=== PATIENT | male | born 1935 | race Caucasian/White ===

== ENCOUNTER 2016-09-19 05:47 | Day surgery (SDC) | payer MEDICARE ==
[2016-09-19] MEDS ORDERED: Lactated Ringers 1,000 ML IV SCH (06:30)
[2016-09-19] MEDS ORDERED: Versed 2 MG/2 ML Injection IV ONE (08:00)
[2016-09-19] MEDS ORDERED: DIPRIVAN 200 MG/20 ML IV ONE (08:00)
--- NOTE | 2016-09-19 08:37 | OP ---
SURGERY DATE/TIME: 09/19/2016 0758 PREOPERATIVE DIAGNOSIS: Anemia. POSTOPERATIVE DIAGNOSIS: Gastritis possible polyp in the antrum. PROCEDURE: Esophagogastroduodenoscopy. SURGEON: Dr. Short. ANESTHESIA: Medications were given by the anesthesia department. BRIEF HISTORY: The patient is an 81 year old white male patient who presents now for complaints of anemia. 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 The patient is on aspirin and Plavix routinely and had not stopped taking his medication prior to the examination. The patient was appraised of the risks of the procedure including the risk of perforation, phlebitis, untoward reaction to medication, bleeding, and missed lesions. The patient verbalized his understanding and desired to have the procedure performed. DESCRIPTION OF PROCEDURE: The patient was given the medications by the anesthesia department. He had continuous pulse oximetry, ECG monitoring, intermittent blood pressure monitoring and tidal CO2 monitoring. He was given 40 mg of propofol and with close monitoring during the examination. With the Olympus gastroscope we were able to intubate the esophagus and advance the scope to the stomach which was insufflated with care. The scope was passed along the greater curvature of the stomach to the antrum which appeared with an area of villous-type appearance of that of a possible polyp. Pylorus was intubated and the duodenum was inspected. No ulcerations were noted. The patient was noted at this time to have decreasing O2 saturations. We felt it prudent at this time to discontinue the evaluation as he continued to deteriorate. The scope was then removed from the patient. He had to be bagged with the Ambu bag for a period of approximately five minutes before he woke up. We thought it was unsafe to continue with the evaluation at this time. The patient had careful inspection and he eventually woke up and appeared to be doing well supporting his breathing on his own. By the time I left the room he seemed to be recovering nicely. The patient was taken back to the recovery room in stable condition. We will discuss with the patient and his about the findings and the concern for proceeding further with the evaluation given his problems with his sedation with the fact that he was unable to tolerate being on medication for evaluation.
[2016-09-19 11:17] VITALS: BP 129/63; PULSE 70; O2SAT 90
== END 2016-09-19 11:15 | disposition home or self-care (01) ==
LOC: SDC 05:47
PROVIDERS: ATTEND Family Medicine
PROC: 0DJ08ZZ Inspection of Upper Intestinal Tract, Via Natural or Artificial Opening Endoscopic (ICD-10-PCS; principal; 2016-09-19)
DX: D64.9 Anemia, unspecified (principal); K29.70 Gastritis, unspecified, without bleeding; I50.9 Heart failure, unspecified; I10 Essential (primary) hypertension; Z79.899 Other long term (current) drug therapy; Z79.01 Long term (current) use of anticoagulants
CPT/HCPCS: 00740; 36415; 85014; 85018; 99100; J2250; J2704

== ENCOUNTER 2016-09-20 11:36 | Observation (INO) | payer MEDICARE ==
[2016-09-20] MEDS ORDERED: BABY ASPIRIN 81 MG CHEW PO ONE (11:43)
[2016-09-20] MEDS ORDERED: NITRO-BID 2% UD PACKETS TOP ONE (11:43)
--- NOTE | 2016-09-20 12:01 | ERPHSYRPT ---
- History of Present Illness Time Seen by Provider: 09/20/16 11:45 Historian: patient Exam Limitations: no limitations Patient Subjective Stated Complaint: pt states he began having chest pressure that started this morning. states he had an upper gi scope on 09/19/16 to check on an ulcer. pt states he quit breathing and they had to stop procedure. pt states he went home after procedure. Triage Nursing Assessment: pt pale, warm, dry. bilateral lower legs have 4 plus pitting edema. redness with bandage noted to left lower leg. lung sounds clear adn equal. pt breathing wnl. talking in full sentences. Physician History: Pt. desaturated with conscious sedation for EGD yesterday. Timing/Duration: today Activities at Onset: none Quality: sharpness Location: substernal Chest Pain Radiation: no radiation Severity of Pain-Max: moderate Severity of Pain-Current: moderate Modifying Factors: Improves With: other (post respiratoy distress with upper GI yesterday.) Associated Symptoms: denies symptoms Nitro Today/Relief: no nitro taken today Aspirin Treatment Today: 81 mg x 1 Allergies/Adverse Reactions: Sulfa (Sulfonamide Antibiotics) [Sulfa(Sulfonamide Antibiotics)] Allergy ( Verified 09/19/16 06:19) Home Medications: Furosemide 80 mg PO BID 08/31/12 [History] Glipizide 10 mg [Glucotrol 10 MG] 10 mg PO TID 08/31/12 [History] Insulin Glargine,Hum.rec.anlog [Lantus] 70 unit SQ HS 08/31/12 [History] Omeprazole 40 mg PO HS 08/31/12 [History] Potassium Chloride 10 Meq Tab* [Klor Con 10 MEQ] 10 meq PO TID 08/31/12 [ History] Pregabalin [Lyrica] 200 mg PO TID 08/31/12 [History] Apixaban [Eliquis] 2.5 mg PO BID 01/23/16 [History] Aspirin [Aspirin EC] 81 mg PO DAILY 01/23/16 [History] Ferrous Sulfate 325 mg [Feosol 325 mg] 325 mg PO BID 01/23/16 [History] Insulin Lispro [Humalog] 1 unit SQ UD 01/23/16 [History] Insulin Lispro [Humalog] 10 unit SQ ACHS 01/23/16 [History] Levothyroxine Sodium 150 Mcg [Synthroid 150 Mcg] 150 mcg PO DAILY 01/23/16 [History] Magnesium Oxide 400 mg [Mag-Ox 400] 200 mg PO BID 01/23/16 [History] Verapamil HCl 80 mg [Calan 80 mg] 80 mg PO BID 01/23/16 [History] Zolpidem Tartrate [Ambien] 10 mg PO HS 01/23/16 [History] Desloratadine [Clarinex] 5 mg PO HS 09/20/16 [History] Losartan Potassium 25 mg PO DAILY 09/20/16 [History] Nebivolol HCl [Bystolic] 20 mg PO BID 09/20/16 [History] Tamsulosin HCl 0.4 mg [Flomax 0.4 MG] 0.4 mg PO DAILY 09/20/16 [History] Hx Tetanus, Diphtheria Vaccination/Date Given: Yes (up to date) Hx Influenza Vaccination/Date Given: Yes Hx Pneumococcal Vaccination/Date Given: Yes Immunizations Up to Date: Yes - Review of Systems Constitutional: No Symptoms Eyes: No Symptoms Ears, Nose, & Throat: No Symptoms Respiratory: Dyspnea, Dyspnea on Exertion (STUBBS) Cardiac: Chest Pain, Edema Abdominal/Gastrointestinal: No Symptoms Musculoskeletal: No Symptoms Skin: No Symptoms Neurological: No Symptoms Psychological: No Symptoms Endocrine: No Symptoms Hematologic/Lymphatic: No Symptoms - Past Medical History Pertinent Past Medical History: Yes Neurological History: No Pertinent History ENT History: No Pertinent History Cardiac History: Arrhythmia, Congestive Heart Failure, Coronary Artery Disease, Hypertension, Myocardial Infarction (CT) Respiratory History: CHF, Pneumonia, Sleep Apnea Endocrine Medical History: Diabetes Type II, Hypothyroidism Musculoskeletal History: Arthritis, Rheumatoid Arthritis GI Medical History: Diverticulitis History: Renal Disease Psycho-Social History: No Pertinent History Male Reproductive Disorders: Prostate Problems, Testicular Cancer Other Medical History: states had osteomyelitis yrs ago. Hx of Afib. - Past Surgical History Past Surgical History: Yes Neuro Surgical History: No Pertinent History Cardiac: Cardiac Stent, Pacemaker Respiratory: No Pertinent History Gastrointestinal: No Pertinent History Genitourinary: No Pertinent History Musculoskeletal: Orthopedic Surgery, Other Male Surgical History: Testicular Surgery Other Surgical History: states had low abd open to do surgery to testicular area. colonoscopy. bilateral feet surgeries. lymph node dissection. 2 back surgeries - Social History Smoking Status: Former smoker Exposure to second hand smoke: No Drug Use: none Patient Lives Alone: No - Nursing Vital Signs Temperature: 97.9 F Temperature Source: Oral Pulse Rate: 70 Respiratory Rate: 18 Blood Pressure: 120/73 Pain Intensity: 2 - Physical Exam General Appearance: moderate distress Eye Exam: PERRL/EOMI, eyes nml inspection Ears, Nose, Throat Exam: normal ENT inspection, pharynx normal Neck Exam: normal inspection, non-tender, supple, full range of motion Respiratory Exam: normal breath sounds, lungs clear Cardiovascular Exam: regular rate/rhythm, normal peripheral pulses Gastrointestinal/Abdomen Exam: soft, normal bowel sounds Extremity Exam: normal range of motion, pelvis stable, pedal edema (4+ pretibial pitting BLE) Neurologic Exam: alert, oriented x 3, cooperative, normal mood/affect Skin Exam: warm, dry SpO2 Interpretation: normal SpO2: 89 Oxygen Delivery: Room Air - Course Nursing assessment & vital signs reviewed: Yes EKG Interpreted by Me: RATE (70..RV paced), Other (No determination of ST/T abn d/t pacemaker) - Radiology Exams Chest X-ray Interpretation: Discussed w/ radiologist (minimally worsened left basilar inf/atelectasis/effusion. Borderline cardiomegaly.) Ordered Tests: Active Orders 24 hr Category Date Time Status Family Nurse Practitioner STAT Care 09/20/16 11:43 Active EKG-ER Only STAT Care 09/20/16 11:43 Active Oxygen-ED Only NASAL CANNULA 2 lpm Care 09/20/16 11:43 Active CHEST 1 VIEW (PORTABLE) Stat Exams 09/20/16 11:43 Completed CBC W DIFF Stat Lab 09/20/16 11:50 Completed CMP Stat Lab 09/20/16 11:50 Received Manual Differential NC Stat Lab 09/20/16 11:50 Completed NT PRO BNP Stat Lab 09/20/16 11:50 Received PROTIME WITH INR Stat Lab 09/20/16 11:50 Received TROPONIN Q3H Lab 09/20/16 11:50 Received TROPONIN Q3H Lab 09/20/16 14:45 Ordered TROPONIN Q3H Lab 09/20/16 17:45 Ordered TROPONIN Q3H Lab 09/20/16 20:45 Ordered TROPONIN Q3H Lab 09/20/16 23:45 Ordered Medication Summary Discontinued Medications Generic Name Dose Route Start Last Admin Trade Name Konstantin PRN Reason Stop Dose Admin Aspirin 324 mg 09/20/16 11:43 09/20/16 12:10 Baby Aspirin 81 Mg Chew PO 09/20/16 11:44 324 mg STAT ONE Administration Aspirin Confirm 09/20/16 12:08 Baby Aspirin 81 Mg Chew Administered 09/20/16 12:09 Dose 324 mg .ROUTE .STK-MED ONE Nitroglycerin 1 gm 09/20/16 11:43 09/20/16 12:10 Nitro-Bid 2% Ud Packets TOP 09/20/16 11:44 1 gm STAT ONE Administration Nitroglycerin Confirm 09/20/16 12:08 Nitro-Bid 2% Ud Packets Administered 09/20/16 12:09 Dose 1 gm .ROUTE .STK-MED ONE Lab/Rad Data: Laboratory Result Diagrams 09/20/16 11:50 Laboratory Results 09/20/16 Range/Units 11:50 WBC 5.9 (4.0-10.5) K/mm3 RBC 4.23 (4.1-5.6) M/mm3 Hgb 9.8 L (12.5-18.0) gm/dl Hct 34.1 L (42-50) % MCV 80.6 (78-100) fl MCH 23.1 L (26-32) pg MCHC 28.7 L (32-36) g/dl RDW 22.6 H (11.5-14.0) % Plt Count 174 (150-450) K/mm3 MPV 9.9 H (6-9.5) fl - Progress Progress: improved Air Movement: good Blood Culture(s) Obtained: Yes Antibiotics given: Yes, No Discussed with : Edgar Will see patient in: hospital (observation) Counseled pt/family regarding: lab results, diagnosis, rad results - Departure Time of Disposition: 12:55 Departure Disposition: Observation Clinical Impression: Chest pain Qualifiers: Chest pain type: precordial chest pain Qualified Code(s): R07.2 - Precordial pain CHF exacerbation Qualifiers: Congestive heart failure type: unspecified congestive heart failure type Qualified Code(s): I50.9 - Heart failure, unspecified Condition: Stable Critical Care Time: Yes Critical Care Time(excluding separately billable procedures): 30-74 minutes Referrals: FELIPE SANDERS [Primary Care Provider] - Instructions: Heart Failure
[2016-09-20 12:06] LABS: Mean Cell Volume 80.6 fl (78-100); Mean Platelet Volume 9.9 fl (6-9.5); Platelet Count 174 K/mm3 (150-450); Red Blood Count 4.23 M/mm3 (4.1-5.6); Red Cell Distribution Width 22.6 % (11.5-14.0); White Blood Count 5.9 K/mm3 (4.0-10.5)
[2016-09-20 12:07] LABS: Mean Corpuscular Hemoglobin 23.1 pg (26-32)
[2016-09-20] MEDS ORDERED: BABY ASPIRIN 81 MG CHEW ONE (12:08)
[2016-09-20] MEDS ORDERED: NITRO-BID 2% UD PACKETS ONE (12:08)
--- NOTE | 2016-09-20 12:14 | XRAY ---
Indication: Chest pain and short of breath. Comparison: January 24, 2016 Portable apical lordotic chest demonstrates minimally worsening left base infiltrate/atelectasis/effusion. Again a few scattered calcific granulomas. The heart is borderline enlarged again with left-sided dual-lead pacemaker. Bony thorax intact again with mild degenerative changes and mid thoracic kyphoplasty. Impression: Minimally worsening left base infiltrate/atelectasis/effusion. Borderline cardiomegaly.
[2016-09-20 12:45] LABS: INR 1.57 (0.8-3.0); PROTIME 17.4 SECONDS (8.83-12.87)
[2016-09-20 12:46] LABS: ALBUMIN 3.2 g/dL (3.4-5.0); ANION GAP 11.7 MEQ/L (5-15); BILIRUBIN,TOTAL 0.5 mg/dL (0.2-1.0); Carbon Dioxide 33.8 mEq/L (21-32); Potassium 4.2 mEq/L (3.5-5.1); Total Protein 7.1 gm/dL (6.4-8.2)
[2016-09-20] MEDS ORDERED: LASIX IV ONE (12:58)
[2016-09-20] MEDS ORDERED: MILK OF MAGNESIA 30 ML PO PRN (13:00)
[2016-09-20] MEDS ORDERED: MORPHINE SULFATE 2 MG INJ IV PRN (13:00)
[2016-09-20] MEDS ORDERED: TYLENOL 325 MG PO PRN (13:00)
[2016-09-20] MEDS ORDERED: MAALOX ES 30 ML UNIT DOSE PO PRN (13:00)
[2016-09-20] MEDS ORDERED: Zofran 4 MG/2 ML VIAL IV PRN (13:00)
[2016-09-20] MEDS ORDERED: NovoLIN R SQ PRN (13:00)
[2016-09-20] MEDS ORDERED: Senokot-S Tablet PO PRN (13:00)
[2016-09-20 13:01] LABS: BAND 2 % (0.0-2.0); Basophil 1 % (0.0-1.0); Eosinophil 1 % (0.00-3.0); Total Cells Counted 100
[2016-09-20 13:03] LABS: ANISOCYTOSIS 1+; Polychromasia 1+
[2016-09-20 13:04] LABS: Platelet Estimate NORMAL (NORMAL)
[2016-09-20] MEDS: NITRO-BID 2% UD PACKETS TOP SCH ×2 (14:39→21:41)
[2016-09-20] MEDS ORDERED: Zaroxolyn 2.5 MG PO PRN (15:27)
[2016-09-20] MEDS ORDERED: NON-FORMULARY ITEM (Insulin Lispro 1 UNIT) SQ SCH (15:30)
[2016-09-20] MEDS ORDERED: Sodium Chloride 0.9% 10 ML FLUSH Syringe IV PRN (16:07)
[2016-09-20] MEDS: NovoLOG Insulin SQ SCH (16:25)
[2016-09-20] MEDS: CALAN 80 MG PO SCH (21:39)
[2016-09-20] MEDS: CLARITIN 10 MG PO SCH (21:39)
[2016-09-20] MEDS: Bystolic 5 MG PO SCH (21:39)
[2016-09-20] MEDS: Lantus Insulin SQ SCH (21:40)
[2016-09-20] MEDS: FEOSOL 325 MG PO SCH (21:40)
[2016-09-20] MEDS: Klor Con 10 MEQ PO SCH (21:40)
[2016-09-20] MEDS: ELIQUIS PO SCH (21:40)
[2016-09-20] MEDS: Protonix 40MG Tablet PO SCH (21:41)
[2016-09-20] MEDS: LYRICA 100MG PO SCH (21:41)
[2016-09-20] MEDS: Sodium Chloride 0.9% 10 ML FLUSH Syringe IV SCH (21:41)
[2016-09-20] MEDS ORDERED: NON-FORMULARY ITEM (Apixaban [Eliquis] 2.5 MG) PO SCH (22:00)
[2016-09-20] MEDS ORDERED: PREGABALIN 200 MG PO SCH (22:00)
[2016-09-20] MEDS ORDERED: DESLORATADINE 5 MG PO SCH (22:00)
[2016-09-20] MEDS ORDERED: NON-FORMULARY ITEM (Potassium Chloride [K-Dur] 20 MEQ) PO SCH (22:00)
[2016-09-20] MEDS ORDERED: NON-FORMULARY ITEM (Nebivolol Hcl [Bystolic] 20 MG) PO SCH (22:00)
[2016-09-20] MEDS ORDERED: NON-FORMULARY ITEM (Omeprazole [Omeprazole] 40 MG) PO SCH (22:00)
[2016-09-20] MEDS: Ambien 10 MG PO SCH (23:14)
[2016-09-21] MEDS: NovoLOG Insulin SQ PRN ×2 (01:59→21:59)
[2016-09-21] MEDS: Sodium Chloride 0.9% 10 ML FLUSH Syringe IV SCH ×3 (05:35→21:58)
[2016-09-21] MEDS: NITRO-BID 2% UD PACKETS TOP SCH ×3 (05:38→21:50)
[2016-09-21] MEDS: NovoLOG Insulin SQ SCH ×3 (07:19→17:20)
[2016-09-21] MEDS: Klor Con 10 MEQ PO SCH ×2 (07:52→21:54)
[2016-09-21] MEDS: ELIQUIS PO SCH ×2 (09:44→21:55)
[2016-09-21] MEDS: Bystolic 5 MG PO SCH ×2 (09:47→21:56)
[2016-09-21] MEDS: Flomax 0.4 MG PO SCH (09:47)
[2016-09-21] MEDS: SYNTHROID 150 MCG PO SCH (09:48)
[2016-09-21] MEDS: ECOTRIN 81 MG PO SCH (09:48)
[2016-09-21] MEDS: FEOSOL 325 MG PO SCH ×2 (09:48→21:53)
[2016-09-21] MEDS: CALAN 80 MG PO SCH ×2 (09:48→21:54)
[2016-09-21] MEDS: Cozaar 50 MG PO SCH (09:48)
[2016-09-21] MEDS: LYRICA 100MG PO SCH ×3 (09:49→21:53)
[2016-09-21] MEDS ORDERED: NON-FORMULARY ITEM (Losartan Potassium [Losartan Potassium] 25 MG) PO SCH (10:00)
[2016-09-21] MEDS: Protonix 40MG Tablet PO SCH (21:53)
[2016-09-21] MEDS: CLARITIN 10 MG PO SCH (21:56)
[2016-09-21] MEDS: Lantus Insulin SQ SCH (21:57)
[2016-09-21] MEDS: Ambien 10 MG PO SCH (22:53)
[2016-09-22] MEDS: NITRO-BID 2% UD PACKETS TOP SCH (05:29)
[2016-09-22] MEDS: Sodium Chloride 0.9% 10 ML FLUSH Syringe IV SCH (05:30)
[2016-09-22] MEDS: NovoLOG Insulin SQ SCH ×2 (07:35→12:37)
[2016-09-22 07:43] VITALS: BP 153/73
--- NOTE | 2016-09-22 07:43 | ECHO ---
Transthoracic echocardiographic examination and color Doppler was done on 09/21/2016. INDICATION: Congestive heart failure, shortness of breath, chest pain, hypertension, and coronary artery disease. IMPRESSION: 1) GLOBAL LEFT VENTRICULAR HYPOKINESIA WITH SEPTAL DYSKINESIA. LEFT VENTRICULAR EJECTION FRACTION AROUND 25%. 2) MILDLY DILATED LEFT VENTRICLE. 3) LEFT VENTRICULAR HYPERTROPHY. 4) MILD MITRAL REGURGITATION. 5) TRACE TRICUSPID REGURGITATION. RIGHT VENTRICULAR SYSTOLIC PRESSURE OF 26 MM OF MERCURY. The left ventricle is visualized and demonstrated a global left ventricular hypokinesia with septal dyskinesia. Estimated global left ventricular ejection fraction 25%. There is mild left ventricular hypertrophy. The left ventricle is also mildly dilated. The mitral valve is seen and this has a low flow characteristic suggestive of low cardiac output. There is mild mitral regurgitation. The left atrium is still normal. The aortic valve appears to open adequately. There is trace aortic regurgitation. Right side chambers are normal. There is trace tricuspid regurgitation. Right ventricular systolic pressure of 26 mm of Mercury. The tissue Doppler study of the lateral mitral annulus is suggestive of left ventricular diastolic dysfunction.
[2016-09-22] MEDS: FEOSOL 325 MG PO SCH (10:44)
[2016-09-22] MEDS: Bystolic 5 MG PO SCH (10:44)
[2016-09-22] MEDS: SYNTHROID 150 MCG PO SCH (10:45)
[2016-09-22] MEDS: Klor Con 10 MEQ PO SCH (10:45)
[2016-09-22] MEDS: LYRICA 100MG PO SCH (10:45)
[2016-09-22] MEDS: Cozaar 50 MG PO SCH (10:46)
[2016-09-22] MEDS: ELIQUIS PO SCH (10:46)
[2016-09-22] MEDS: Flomax 0.4 MG PO SCH (10:47)
[2016-09-22] MEDS: ECOTRIN 81 MG PO SCH (10:47)
[2016-09-22] MEDS: CALAN 80 MG PO SCH (10:47)
--- NOTE | 2016-09-22 10:59 | XRAY ---
Indication: Low hemoglobin. Incomplete EGD. Single contrast upper GI performed. Comparison: None Study limited due to patient's immobility. Patient ingested barium through a straw without miss swallow or aspiration. Esophagus is normal in course and caliber without focal stricture, obstruction, or filling defect. No hiatal hernia. Barium freely emptied into the stomach. Contours of the lesser and greater curvature are smooth. No acute ulcerations or filling defect. Normal appearing duodenal bulb and duodenal with small diverticulum in the distal descending duodenum. Single overhead radiograph demonstrates normal antegrade movement of the barium. Impression: Duodenal diverticulum. Remaining upper GI exam is negative. Approximately 1.3 minute fluoroscopy used.
--- NOTE | 2016-09-22 11:14 | PCM.DCORD ---
- Discharge Discharge Date: 09/22/16 Disposition: HOME HEALTH SERVICE Condition: Good Medications: Home Medications Furosemide 80 mg PO DAILY 08/31/12 [Confirmed 09/20/16] Glipizide 10 mg [Glucotrol 10 MG] 10 mg PO TID 08/31/12 [Confirmed ] Insulin Glargine,Hum.rec.anlog [Lantus] 70 unit SQ HS 08/31/12 [Confirmed ] Omeprazole 40 mg PO HS 08/31/12 [Confirmed 09/20/16] Potassium Chloride 10 Meq Tab* [Klor Con 10 MEQ] 30 meq PO BREAKFAST [Confirmed 09/20/16] Pregabalin [Lyrica] 200 mg PO TID 08/31/12 [Confirmed 09/20/16] Apixaban [Eliquis] 2.5 mg PO BID 01/23/16 [Confirmed 09/20/16] Aspirin [Aspirin EC] 81 mg PO DAILY 01/23/16 [Confirmed 09/20/16] Ferrous Sulfate 325 mg [Feosol 325 mg] 325 mg PO BID 01/23/16 [Confirmed 09/20/16] Insulin Lispro [Humalog] 1 unit SQ UD 01/23/16 [Confirmed 09/20/16] Levothyroxine Sodium 150 Mcg [Synthroid 150 Mcg] 150 mcg PO DAILY 01/23/16 [Confirmed 09/20/16] Verapamil HCl 80 mg [Calan 80 mg] 80 mg PO BID 01/23/16 [Confirmed ] Zolpidem Tartrate [Ambien] 10 mg PO HS 01/23/16 [Confirmed 09/20/16] Clopidogrel Bisulfate 75 mg [PLAVIX 75 MG Tablet] 75 mg PO UD 09/20/16 [ Confirmed 09/20/16] Desloratadine [Clarinex] 5 mg PO HS 09/20/16 [Confirmed 09/20/16] Losartan Potassium 25 mg PO DAILY 09/20/16 [Confirmed 09/20/16] Metolazone 2.5 mg [Zaroxolyn 2.5 MG] 2.5 mg PO WEEKLY PRN 09/20/16 [ Confirmed 09/20/16] Nebivolol HCl [Bystolic] 20 mg PO BID 09/20/16 [Confirmed 09/20/16] Potassium Chloride [K-Dur] 20 meq PO HS 09/20/16 [Confirmed 09/20/16] Tamsulosin HCl 0.4 mg [Flomax 0.4 MG] 0.4 mg PO DAILY 09/20/16 [Confirmed 09/20/16] Active Inpatient Medications Acetaminophen (Tylenol 325 Mg) 650 mg PO Q4H PRN PRN PRN Reason: PAIN AND/OR FEVER Stop: 10/20/16 12:59 Al Hydrox/Mg Hydrox/Simethicone (Maalox Es 30 Ml Unit Dose) 30 ml PO Q4H PRN PRN PRN Reason: INDIGESTION Stop: 10/20/16 12:59 Apixaban (Eliquis) 2.5 mg PO BID [facility] Stop: 10/20/16 21:59 Last Admin: 09/22/16 10:46 Dose: 2.5 mg Aspirin (Ecotrin 81 Mg) 81 mg PO DAILY [facility] Stop: 10/21/16 09:59 Last Admin: 09/22/16 10:47 Dose: 81 mg Clopidogrel Bisulfate (Plavix 75 Mg Tablet) 75 mg PO [id number]@1000 [facility] Stop: 10/25/16 09:59 Ferrous Sulfate (Feosol 325 Mg) 325 mg PO BID [facility] Stop: 10/20/16 21:59 Last Admin: 09/22/16 10:44 Dose: 325 mg Insulin Aspart (Novolog Insulin) 10 unit SQ AC [facility] Stop: 10/20/16 16:29 Last Admin: 09/22/16 07:35 Dose: Not Given Insulin Aspart (Novolog Insulin) 0 unit SQ UD PRN Stop: 10/20/16 15:46 Last Admin: 09/21/16 21:59 Dose: 7 unit Insulin Glargine (Lantus Insulin) 70 unit SQ HS [facility] Stop: 10/20/16 21:59 Last Admin: 09/21/16 21:57 Dose: 70 unit Levothyroxine Sodium (Synthroid 150 Mcg) 150 mcg PO DAILY [facility] Stop: 10/21/16 09:59 Last Admin: 09/22/16 10:45 Dose: 150 mcg Loratadine (Claritin 10 Mg) 10 mg PO HS [facility] Stop: 10/20/16 21:59 Last Admin: 09/21/16 21:56 Dose: 10 mg Losartan Potassium (Cozaar 50 Mg) 25 mg PO DAILY [facility] Stop: 10/21/16 09:59 Last Admin: 09/22/16 10:46 Dose: 25 mg Magnesium Hydroxide (Milk Of Magnesia 30 Ml) 30 - 60 ml PO QDP PRN PRN Reason: CONSTIPATION Stop: 10/20/16 12:59 Metolazone (Zaroxolyn 2.5 Mg) 2.5 mg PO WEEKLY PRN PRN Reason: ELEVATED BLOOD PRESSURE Stop: 10/20/16 15:26 Last Admin: 09/20/16 21:41 Dose: 2.5 mg Morphine Sulfate (Morphine Sulfate 2 Mg Inj) 2 mg IV .Q15MIN PRN PRN PRN Reason: CHEST PAIN Stop: 09/25/16 12:59 Nebivolol (Bystolic 5 Mg) 20 mg PO BID [facility] Stop: 10/20/16 21:59 Last Admin: 09/22/16 10:44 Dose: 20 mg Nitroglycerin (Nitro-Bid 2% Ud Packets) 1 gm TOP Q8HT [facility] Stop: 10/20/16 13:59 Last Admin: 09/22/16 05:29 Dose: 1 gm Ondansetron HCl (Zofran 4 Mg/2 Ml Vial) 4 mg IV Q4H PRN PRN PRN Reason: NAUSEA/VOMITING Stop: 10/20/16 12:59 Pantoprazole Sodium (Protonix 40mg Tablet) 40 mg PO HS [facility] Stop: 10/20/16 21:59 Last Admin: 09/21/16 21:53 Dose: 40 mg Potassium Chloride (Klor Con 10 Meq) 30 meq PO BREAKFAST [facility] Stop: 10/21/16 07:59 Last Admin: 09/22/16 10:45 Dose: 30 meq Potassium Chloride (Klor Con 10 Meq) 20 meq PO HS [facility] Stop: 10/20/16 21:59 Last Admin: 09/21/16 21:54 Dose: 20 meq Pregabalin (Lyrica 100mg) 200 mg PO TID [facility] Stop: 10/20/16 21:59 Last Admin: 09/22/16 10:45 Dose: 200 mg Senna/Docusate Sodium (Senokot-S Tablet) 2 udtab PO BID PRN PRN PRN Reason: CONSTIPATION Stop: 10/20/16 12:59 Sodium Chloride (Sodium Chloride 0.9% 10 Ml Flush Syringe) 10 ml IV Q8HT [facility] Stop: 10/20/16 21:59 Last Admin: 09/22/16 05:30 Dose: 10 ml Sodium Chloride (Sodium Chloride 0.9% 10 Ml Flush Syringe) 10 ml IV PRN PRN PRN Reason: FLUSH Stop: 10/20/16 16:06 Tamsulosin HCl (Flomax 0.4 Mg) 0.4 mg PO DAILY [facility] Stop: 10/21/16 09:59 Last Admin: 09/22/16 10:47 Dose: 0.4 mg Verapamil HCl (Calan 80 Mg) 80 mg PO BID [facility] Stop: 10/20/16 21:59 Last Admin: 09/22/16 10:47 Dose: 80 mg Zolpidem Tartrate (Ambien 10 Mg) 10 mg PO HS [facility] Stop: 10/20/16 21:59 Last Admin: 09/21/16 22:53 Dose: 10 mg Instructions: Heart Failure Additional Instructions: [facility] TO FOLLOW YOU AFTER DISCHARGE YOU MAY CONTACT THEM AT [phone] IF NEEDED. Follow up with: FELIPE SANDERS [Primary Care Provider] - Forms: Patient Portal Information
[2016-09-22 12:11] VITALS: PULSE 72; O2SAT 95
[2016-09-25] MEDS ORDERED: PLAVIX 75 MG Tablet PO SCH (10:00)
--- NOTE | 2016-09-26 10:38 | DS ---
DISCHARGE DIAGNOSES: 1) ANEMIA. 2) CHRONIC OBSTRUCTIVE PULMONARY DISEASE. 3) CORONARY ARTERY DISEASE. 4) CONGESTIVE HEART FAILURE. 5) DIABETES MELLITUS TYPE 2. 6) RENAL INSUFFICIENCY. 7) CHRONIC LYMPH EDEMA. HISTORY: The patient is an 81 year-old white male patient who was brought into the hospital for problems with anemia and shortness of breath. 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 However the lab had discussion and disagreement with this as his hemoglobin was 8.8 and not less than 8 and it is hospital policy not to transfuse unless it was less than 8. The fertilizer mixer admitted him after this and did not insist upon blood transfusion. However the patient was felt the need to have endoscopic evaluation to look for a source of blood loss. The patient was admitted to the hospital for outpatient endoscopy. HOSPITAL COURSE: The patient went to endoscopy. There appeared to be an area in the lower stomach that appeared to be abnormal. However the patient did not tolerate propofol. He desaturated and stopped breathing. The procedure had to be halted and the patient had to be resuscitated by bagging for approximately five minutes until the medicine wore off after which the patient seemed to do well. He was monitored for several hours and allowed to be discharged home. The patient presented himself back to the emergency room later with more problems with weakness and he was therefore admitted to the hospital for observation. With monitoring the patient's blood count actually improved with no transfusion getting to the low 9 range. The patient showed what appeared to be an abnormality on the EGD briefly and evaluated with upper GI examination which did not see any significant abnormalities. The patient was actually doing quite well at this point and felt to be ready for discharge back home. He was discharged back home on his usual home medications, instructed to follow up in the office again in one week.
== END 2016-09-22 14:15 | disposition home health service (06) ==
LOC: ED 11:36 → MED SURG 13:25
PROVIDERS: ADMIT Family Medicine; ATTEND Family Medicine
DX: D64.9 Anemia, unspecified (principal); J44.9 Chronic obstructive pulmonary disease, unspecified; I25.10 Atherosclerotic heart disease of native coronary artery without angina pectoris; I50.9 Heart failure, unspecified; E11.9 Type 2 diabetes mellitus without complications; N28.9 Disorder of kidney and ureter, unspecified; I89.0 Lymphedema, not elsewhere classified
CPT/HCPCS: 36415; 71010; 74246; 80053; 82962; 83880; 84484; 85025; 85610; 87040; 93005; 93041; 93268; 93306; 94660; 94760; 99284; G0378; J1940

== ENCOUNTER 2017-07-14 22:38 | Emergency (ER) | payer MEDICARE, SELFPAY ==
[2017-07-14] MEDS ORDERED: SUBLIMAZE 100 MCG/2 ML IV ONE (23:02)
--- NOTE | 2017-07-14 23:11 | ERPHSYRPT ---
- History of Present Illness Time Seen by Provider: 07/14/17 22:47 Source: patient, EMS (noted low BP milo IVF bolus 400ml given) Physician History: CC: right arm swelling Hx: 81 y/o patient of Dr Short has right foot sore being cared for by [facility]. He noted he awoke with right arm swelling and pain about a week ago and it has worsened. [facility] sent him here to rule out DVT in right arm. He reports very remote hx of gout. No fall or injury, just awoke with arm pain and swelling. No fever or chills. He has some tingling in the right hand. Pain in right arm limits ROM. Severity of Pain-Max: severe Severity of Pain-Current: severe Extremities Pain Location: arm: right Allergies/Adverse Reactions: Sulfa (Sulfonamide Antibiotics) [Sulfa(Sulfonamide Antibiotics)] Allergy ( Verified 09/19/16 06:19) Home Medications: Furosemide 80 mg PO DAILY 08/31/12 [History] Glipizide 10 mg [Glucotrol 10 MG] 10 mg PO TID 08/31/12 [History] Insulin Glargine,Hum.rec.anlog [Lantus] 70 unit SQ HS 08/31/12 [History] Omeprazole 40 mg PO HS 08/31/12 [History] Potassium Chloride 10 Meq Tab* [Klor Con 10 MEQ] 30 meq PO BREAKFAST [History] Pregabalin [Lyrica] 200 mg PO TID 08/31/12 [History] Apixaban [Eliquis] 2.5 mg PO BID 01/23/16 [History] Aspirin [Aspirin EC] 81 mg PO DAILY 01/23/16 [History] Ferrous Sulfate 325 mg [Feosol 325 mg] 325 mg PO BID 01/23/16 [History] Insulin Lispro [Humalog] 1 unit SQ UD 01/23/16 [History] Levothyroxine Sodium 150 Mcg [Synthroid 150 Mcg] 150 mcg PO DAILY 01/23/16 [History] Verapamil HCl 80 mg [Calan 80 mg] 80 mg PO BID 01/23/16 [History] Zolpidem Tartrate [Ambien] 10 mg PO HS 01/23/16 [History] Clopidogrel Bisulfate 75 mg [PLAVIX 75 MG Tablet] 75 mg PO UD 09/20/16 [ History] Desloratadine [Clarinex] 5 mg PO HS 09/20/16 [History] Losartan Potassium 25 mg PO DAILY 09/20/16 [History] Metolazone 2.5 mg [Zaroxolyn 2.5 MG] 2.5 mg PO WEEKLY PRN 09/20/16 [History] Nebivolol HCl [Bystolic] 20 mg PO BID 09/20/16 [History] Potassium Chloride [K-Dur] 20 meq PO HS 09/20/16 [History] Tamsulosin HCl 0.4 mg [Flomax 0.4 MG] 0.4 mg PO DAILY 09/20/16 [History] Hx Tetanus, Diphtheria Vaccination/Date Given: Yes (up to date) Hx Influenza Vaccination/Date Given: Yes Hx Pneumococcal Vaccination/Date Given: Yes - Review of Systems Constitutional: No Fever, No Chills Eyes: No Symptoms Ears, Nose, & Throat: No Symptoms Respiratory: No Cough, No Dyspnea Cardiac: No Chest Pain Abdominal/Gastrointestinal: No Abdominal Pain, No Nausea, No Vomiting Musculoskeletal: Joint Pain (right elbow), No Back Pain, No Neck Pain, No Fall, No Injury Skin: No Rash Neurological: Focal Weakness (right hand), Parasthesia (right hand), No Headache All Other Systems: Reviewed and Negative - Past Medical History Pertinent Past Medical History: Yes Neurological History: No Pertinent History ENT History: No Pertinent History Cardiac History: Arrhythmia, Congestive Heart Failure, Coronary Artery Disease, Hypertension, Myocardial Infarction (VT) Respiratory History: CHF, Pneumonia, Sleep Apnea Endocrine Medical History: Diabetes Type II, Hypothyroidism Musculoskeletal History: Arthritis, Rheumatoid Arthritis GI Medical History: Diverticulitis History: Renal Disease Psycho-Social History: No Pertinent History Male Reproductive Disorders: Prostate Problems, Testicular Cancer Other Medical History: states had osteomyelitis yrs ago. Hx of Afib. - Past Surgical History Past Surgical History: Yes Neuro Surgical History: No Pertinent History Cardiac: Cardiac Stent, Pacemaker Respiratory: No Pertinent History Gastrointestinal: No Pertinent History Genitourinary: No Pertinent History Musculoskeletal: Orthopedic Surgery, Other Male Surgical History: Testicular Surgery Other Surgical History: states had low abd open to do surgery to testicular area. colonoscopy. bilateral feet surgeries. lymph node dissection. 2 back surgeries - Social History Smoking Status: Former smoker Exposure to second hand smoke: No Drug Use: none Patient Lives Alone: No - Nursing Vital Signs Nursing Vital Signs: Initial Vital Signs Temperature 98.4 F 07/14/17 22:47 Pulse Rate 76 07/14/17 22:47 Respiratory Rate 18 07/14/17 22:47 Blood Pressure 148/64 07/14/17 22:47 O2 Sat by Pulse Oximetry 96 07/14/17 22:47 Pain Scale Pain Intensity 10 - Physical Exam General Appearance: alert Eyes, Ears, Nose, Throat Exam: normal ENT inspection, moist mucous membranes Neck Exam: normal inspection, supple Cardiovascular/Respiratory Exam: normal breath sounds, regular rate/rhythm Abdominal Exam: non-tender, soft Shoulder Exam: normal inspection, non-tender Elbow/Forearm Exam: swelling (right elbow is swollen, not red, not warm) Mental Status Exam: alert, oriented x 3, cooperative Skin Exam: warm, dry SpO2 Interpretation: normal SpO2: 96 Oxygen Delivery: Room Air Comments: right elbow swollen and tender. Not red or warm. He has limited ROM right arm and holds it still. He has a tremor. Right hand is held in partial flexion with limited ROM hand. He has loss of light touch sensation in right index finger at median area and 5th finger ulnar area. - Course Nursing assessment & vital signs reviewed: Yes EKG Interpreted by Me: RATE (76 pacemaker rhythm) - Radiology Exams cxr X-ray Interpretation: Reviewed by me (CM, pacemaker, mild congestion) right elbow X-ray Interpretation: Reviewed by me (severe degenerative change) - Radiology Ultrasound Exam right upper extremity Ultrasound: Other (per tech: large elbow effusion with fluid, no DVT in right arm, good distal arterial flow both radial and ulnar arteries) Ordered Tests: Active Orders 24 hr Category Date Time Status Clean Catch Urine Specimen STAT Care 07/14/17 23:02 Active EKG-ER Only STAT Care 07/14/17 23:02 Active IV Insertion STAT Care 07/14/17 23:02 Active CHEST 1 VIEW (PORTABLE) Stat Exams 07/14/17 23:03 Taken ELBOW (2 VIEW) Stat Exams 07/14/17 23:01 Taken VENOUS UNILAT/LIMITED EXTREMIT [US] Stat Exams 07/14/17 23:02 Ordered BLOOD CULTURE Stat Lab 07/15/17 00:18 Ordered CBC W DIFF Stat Lab 07/14/17 23:30 Completed CK-Creatinine Phosphokinase Stat Lab 07/14/17 23:30 Completed CMP Stat Lab 07/14/17 23:30 Completed CULTURE,URINE Stat Lab 07/14/17 23:30 Received Erythrocyte Sedimentation Rate Stat Lab 07/14/17 23:30 Completed Lactic Acid Stat Lab 07/14/17 23:35 Completed PROTIME WITH INR Stat Lab 07/14/17 23:30 Completed PTT Stat Lab 07/14/17 23:30 Completed UA W/ MICROSCOPIC Stat Lab 07/14/17 23:30 Completed Uric Acid Stat Lab 07/14/17 23:30 Completed Medication Summary Generic Name Dose Route Start Last Admin Trade Name Freq PRN Reason Stop Dose Admin Sodium Chloride 1,000 mls @ 100 mls/hr 07/14/17 23:15 07/14/17 23:41 Sodium Chloride 0.9% 1000 Ml IV 08/13/17 23:14 100 mls/hr .Q10H SHALONDA Administration Discontinued Medications Generic Name Dose Route Start Last Admin Trade Name Freq PRN Reason Stop Dose Admin Fentanyl Citrate 50 mcg 07/14/17 23:02 07/14/17 23:41 Sublimaze 100 Mcg/2 Ml IV 07/14/17 23:03 50 mcg STAT ONE Administration Fentanyl Citrate Confirm 07/14/17 23:25 Sublimaze 100 Mcg/2 Ml Administered 07/14/17 23:26 Dose 100 mcg .ROUTE .STK-MED ONE Fentanyl Citrate 50 mcg 07/15/17 00:41 07/15/17 00:50 Sublimaze 100 Mcg/2 Ml IV 07/15/17 00:42 50 mcg STAT ONE Administration Fentanyl Citrate Confirm 07/15/17 00:47 Sublimaze 100 Mcg/2 Ml Administered 07/15/17 00:48 Dose 100 mcg .ROUTE .STK-MED ONE Lab/Rad Data: Laboratory Result Diagrams 07/14/17 23:30 07/14/17 23:30 Laboratory Results 07/14/17 07/14/17 07/14/17 Range/Units 23:35 23:30 23:30 WBC (4.0-10.5) K/mm3 RBC (4.1-5.6) M/mm3 Hgb (12.5-18.0) gm/dl Hct (42-50) % MCV (78-100) fl MCH (26-32) pg MCHC (32-36) g/dl RDW (11.5-14.0) % Plt Count (150-450) K/mm3 MPV (6-9.5) fl Gran % (36.0-66.0) % Lymphocytes % (24.0-44.0) % Monocytes % (0.0-12.0) % Eosinophils % (0.00-5.0) % Basophils % (0.0-0.4) % Basophils # (0-0.4) ESR (0-15) mm/hr INR 1.42 (0.8-3.0) APTT 35.4 (24.1-36.1) SECONDS Sodium (136-145) mEq/L Potassium (3.5-5.1) mEq/L Chloride (98-107) mEq/L Carbon Dioxide (21-32) mEq/L Anion Gap (5-15) MEQ/L BUN (9-20) mg/dL Creatinine (0.55-1.30) mg/dl Estimated GFR ML/MIN Glucose (70-110) MG/DL Lactic Acid 0.8 (0.4-2.0) Uric Acid (3.5-7.2) mg/dL Calcium (8.5-10.1) mg/dL Total Bilirubin (0.2-1.0) mg/dL AST (15-37) U/L ALT (12-78) U/L Alkaline Phosphatase (46-116) U/L Creatine Kinase 92 (39-308) U/L Serum Total Protein (6.4-8.2) gm/dL Albumin (3.4-5.0) g/dL Ur Collection Type Urine Color (YELLOW) Urine Appearance (CLEAR) Urine pH (5-6) Ur Specific Chester (1.005-1.025) Urine Protein (Negative) Urine Ketones (NEGATIVE) Urine Blood (0-5) Baldo/ul Urine Nitrite (NEGATIVE) Urine Bilirubin (NEGATIVE) Urine Urobilinogen (0-1) mg/dL Ur Leukocyte Esterase (NEGATIVE) Urine Microscopic RBC (0-2) /HPF Urine Microscopic WBC (0-5) /HPF Ur Epithelial Cells (FEW) /HPF Urine Bacteria (NEGATIVE) /HPF Hyaline Casts (0-2) /LPF Urine Culture Reflexed (NO) Urine Glucose (NEGATIVE) mg/dL Specimen Received 07/14/17 07/14/17 07/14/17 Range/Units 23:30 23:30 23:30 WBC (4.0-10.5) K/mm3 RBC (4.1-5.6) M/mm3 Hgb (12.5-18.0) gm/dl Hct (42-50) % MCV (78-100) fl MCH (26-32) pg MCHC (32-36) g/dl RDW (11.5-14.0) % Plt Count (150-450) K/mm3 MPV (6-9.5) fl Gran % (36.0-66.0) % Lymphocytes % (24.0-44.0) % Monocytes % (0.0-12.0) % Eosinophils % (0.00-5.0) % Basophils % (0.0-0.4) % Basophils # (0-0.4) ESR 64 H (0-15) mm/hr INR (0.8-3.0) APTT (24.1-36.1) SECONDS Sodium (136-145) mEq/L Potassium (3.5-5.1) mEq/L Chloride (98-107) mEq/L Carbon Dioxide (21-32) mEq/L Anion Gap (5-15) MEQ/L BUN (9-20) mg/dL Creatinine (0.55-1.30) mg/dl Estimated GFR ML/MIN Glucose (70-110) MG/DL Lactic Acid (0.4-2.0) Uric Acid 10.7 H (3.5-7.2) mg/dL Calcium (8.5-10.1) mg/dL Total Bilirubin (0.2-1.0) mg/dL AST (15-37) U/L ALT (12-78) U/L Alkaline Phosphatase (46-116) U/L Creatine Kinase (39-308) U/L Serum Total Protein (6.4-8.2) gm/dL Albumin (3.4-5.0) g/dL Ur Collection Type CLEAN CATCH Urine Color YELLOW (YELLOW) Urine Appearance CLEAR (CLEAR) Urine pH 5.0 (5-6) Ur Specific Chester 1.015 (1.005-1.025) Urine Protein 100 (Negative) Urine Ketones NEGATIVE (NEGATIVE) Urine Blood TRACE NON-HEM (0-5) Baldo/ul Urine Nitrite NEGATIVE (NEGATIVE) Urine Bilirubin NEGATIVE (NEGATIVE) Urine Urobilinogen NORMAL (0-1) mg/dL Ur Leukocyte Esterase NEGATIVE (NEGATIVE) Urine Microscopic RBC 2-5 (0-2) /HPF Urine Microscopic WBC 2-5 (0-5) /HPF Ur Epithelial Cells FEW (FEW) /HPF Urine Bacteria RARE (NEGATIVE) /HPF Hyaline Casts 0-2 (0-2) /LPF Urine Culture Reflexed YES (NO) Urine Glucose NEGATIVE (NEGATIVE) mg/dL Specimen Received 07/14/17 [id number] 07/14/17 07/14/17 Range/Units 23:30 23:30 WBC 10.4 (4.0-10.5) K/mm3 RBC 4.96 (4.1-5.6) M/mm3 Hgb 11.9 L (12.5-18.0) gm/dl Hct 36.9 L (42-50) % MCV 74.4 L (78-100) fl MCH 23.9 L (26-32) pg MCHC 32.2 (32-36) g/dl RDW 17.2 H (11.5-14.0) % Plt Count 176 (150-450) K/mm3 MPV 10.2 H (6-9.5) fl Gran % 70.0 H (36.0-66.0) % Lymphocytes % 18.0 L (24.0-44.0) % Monocytes % 10.8 (0.0-12.0) % Eosinophils % 0.9 (0.00-5.0) % Basophils % 0.3 (0.0-0.4) % Basophils # 0.03 (0-0.4) ESR (0-15) mm/hr INR (0.8-3.0) APTT (24.1-36.1) SECONDS Sodium 136 (136-145) mEq/L Potassium 3.3 L (3.5-5.1) mEq/L Chloride 100 (98-107) mEq/L Carbon Dioxide 25.5 (21-32) mEq/L Anion Gap 14.0 (5-15) MEQ/L BUN 37 H (9-20) mg/dL Creatinine 1.79 H (0.55-1.30) mg/dl Estimated GFR 39 ML/MIN Glucose 88 (70-110) MG/DL Lactic Acid (0.4-2.0) Uric Acid (3.5-7.2) mg/dL Calcium 8.8 (8.5-10.1) mg/dL Total Bilirubin 0.40 (0.2-1.0) mg/dL AST 19 (15-37) U/L ALT 15 (12-78) U/L Alkaline Phosphatase 66 (46-116) U/L Creatine Kinase (39-308) U/L Serum Total Protein 7.8 (6.4-8.2) gm/dL Albumin 2.8 L (3.4-5.0) g/dL Ur Collection Type Urine Color (YELLOW) Urine Appearance (CLEAR) Urine pH (5-6) Ur Specific [place] (1.005-1.025) Urine Protein (Negative) Urine Ketones (NEGATIVE) Urine Blood (0-5) Baldo/ul Urine Nitrite (NEGATIVE) Urine Bilirubin (NEGATIVE) Urine Urobilinogen (0-1) mg/dL Ur Leukocyte Esterase (NEGATIVE) Urine Microscopic RBC (0-2) /HPF Urine Microscopic WBC (0-5) /HPF Ur Epithelial Cells (FEW) /HPF Urine Bacteria (NEGATIVE) /HPF Hyaline Casts (0-2) /LPF Urine Culture Reflexed (NO) Urine Glucose (NEGATIVE) mg/dL Specimen Received - Progress Progress Note: 07/15/17 01:11 FEntanyl given for pain. He has large elbow effusion, could be gout or septic. He needs orthopedist not available here. Pt and family request [facility]. Called [facility] transfer center and spoke to Dr Nic Batres/Alla who accept transfer to [facility] ER for admission. Dr Phelan advised no steroid or abtx at this time until further diagnostics. Plan explained to pt and family. Counseled pt/family regarding: lab results, diagnosis, need for follow-up, rad results - Departure Time of Disposition: 01:13 Departure Disposition: Transfer ([facility] ER) Clinical Impression: Effusion, right elbow, Gout, neuropraxia right hand, Type 2 diabetes mellitus Condition: Fair Critical Care Time: No Referrals: MONICA CARRANZA MD [Primary Care Provider] -
[2017-07-14] MEDS ORDERED: Sodium Chloride 0.9% 1000 ML 1,000 ML IV SCH (23:15)
[2017-07-14] MEDS ORDERED: Sodium Chloride 0.9% 1000 ML 1,000 ML ONE (23:25)
[2017-07-14] MEDS ORDERED: SUBLIMAZE 100 MCG/2 ML ONE (23:25)
[2017-07-14 23:45] LABS: BASOPHIL % 0.3 % (0.0-0.4); Eosinophil % 0.9 % (0.00-5.0); Mean Cell Volume 74.4 fl (78-100); Mean Platelet Volume 10.2 fl (6-9.5); Monocytes % 10.8 % (0.0-12.0); Platelet Count 176 K/mm3 (150-450); Red Blood Count 4.96 M/mm3 (4.1-5.6); Red Cell Distribution Width 17.2 % (11.5-14.0); White Blood Count 10.4 K/mm3 (4.0-10.5)
[2017-07-14 23:48] LABS: Mean Corpuscular Hemoglobin 23.9 pg (26-32)
[2017-07-15 00:03] LABS: ALBUMIN 2.8 g/dL (3.4-5.0); BILIRUBIN,TOTAL 0.4 mg/dL (0.2-1.0); Carbon Dioxide 25.5 mEq/L (21-32); Potassium 3.3 mEq/L (3.5-5.1); Total Protein 7.8 gm/dL (6.4-8.2)
[2017-07-15 00:05] LABS: INR 1.42 (0.8-3.0); PROTIME 15.9 SECONDS (8.83-12.87)
[2017-07-15 00:07] LABS: PTT 35.4 SECONDS (24.1-36.1)
[2017-07-15 00:13] LABS: Bilirubin NEGATIVE (NEGATIVE); Blood TRACE NON-HEM Ery/ul (0-5); COMPLETE URINE MICROSCOPIC? YES; Collection Type CLEAN CATCH; Glucose NEGATIVE (NEGATIVE); Leukocyte Esterase NEGATIVE (NEGATIVE)
[2017-07-15 00:15] LABS: ADD URINE CULTURE? YES (NO); Bacteria RARE /HPF (NEGATIVE); Epithelial Cells FEW /HPF (FEW); Hyaline Casts 0-2 /LPF (0-2)
[2017-07-15] MEDS ORDERED: SUBLIMAZE 100 MCG/2 ML IV ONE (00:41)
[2017-07-15] MEDS ORDERED: SUBLIMAZE 100 MCG/2 ML ONE (00:47)
[2017-07-15 01:58] VITALS: BP 148/80; PULSE 74; O2SAT 92
--- NOTE | 2017-07-15 09:41 | XRAY ---
Indication: Hypotension. Comparison: September 20, 2016. Portable apical lordotic chest slightly underinflated without focal infiltrate, consolidation, or large effusion. Heart remains borderline enlarged. Again left-sided dual lead pacemaker and a few calcified granulomas. Bony thorax intact again with mild osteopenia, degenerative changes, and midthoracic kyphoplasty. Impression: Nonacute chest with chronic features.
--- NOTE | 2017-07-15 09:43 | XRAY ---
Indication: Edema. Comparison: None 3 views of the right elbow demonstrates bony remodeling, sclerosis, osteophytes, and heterotopic ossifications either advanced degenerative changes, old injury, or a combination. Significant soft tissue swelling without foreign body or subcutaneous emphysema. Comment: Preliminary interpretation was made by [facility]. No discrepancy.
--- NOTE | 2017-07-15 09:46 | XRAY ---
Indication: Forearm swelling. Cold fingers. Two-dimensional sonogram and color Doppler imaging of the major venous vessels of the right upper extremity was performed. Comparison: None No thrombus seen in the visualized jugular, subclavian, axillary, basilic, brachial, median cubital, cephalic, radial, and ulnar veins. These veins demonstrate normal compressibility. Normal venous waveforms with and without augmentation. There is incidental small fluid collection around the elbow joint. Impression: Right upper extremity negative for venous thrombosis. Incidental nonspecific elbow effusion. Comment: Preliminary report was given.
== END 2017-07-15 02:00 | disposition short-term general hospital (02) ==
LOC: ED 22:38
DX: M25.421 Effusion, right elbow (principal); M10.9 Gout, unspecified; S64.91XA Injury of unspecified nerve at wrist and hand level of right arm, initial encounter; E11.8 Type 2 diabetes mellitus with unspecified complications; Z79.84 Long term (current) use of oral hypoglycemic drugs; Z79.4 Long term (current) use of insulin; Z79.899 Other long term (current) drug therapy; I50.9 Heart failure, unspecified; I25.10 Atherosclerotic heart disease of native coronary artery without angina pectoris; I10 Essential (primary) hypertension; I25.2 Old myocardial infarction
CPT/HCPCS: 36000; 36415; 71010; 73070; 80053; 81000; 81002; 82550; 83605; 84550; 85025; 85610; 85652; 85730; 87040; 87077; 87086; 87186; 93005; 93971; 96360; 96361; 96374; 96376; 99285; J3010